=== PATIENT | female | born 1940 | race African-American/Black ===

== ENCOUNTER → 2018-01-01 | Outpatient (CLI) | payer MEDICARE, OTHER ==
[2017-06-19 08:24] VITALS: BMI 26.6
[~2018-01-01] MED LIST: ACET-1966 PO; ACET-2031 PO; ACET500T68 PO; ADV250/50 INH; ALB18R INH; ALB6.7R INH; ALBU8.5H IH; ALBU8.5H12 IH; ALE70 PO; ALEN70TA43 PO; AMLO-99 PO; AMOX-559 PO; ASPI-1471 PO; ASPI-715 PO; ASPI81TA15 PO; ATOR40TA24 PO; AZIT500T47 PO; BUDE0.5A6 IH; CETI-175 PO; CHOL100052 PO; CLOT15CR62 TP; CODE473S6 FT; DIPH-618 PO; DUL100/5PT INH; DULERAPT INH; FLU IM; FLU180SY9 IM; FLU45SYR17 IM; FLU45SYR25 IM ONLY; FURO-45 PO; FURO-47 PO; HYDR-2966 PO; HYDR-4309 PO; IPR14R INH; IPRA3AMP21 IH; KET10 PO; LEVO-85 PO; LOR5/325 PO; LOVA20TA99 PO; MECL12.5 PO; MECL25TA9 PO; METO100T20 PO; METR-160 PO; METXR500 PO; PNEU0.5D3 IM; POTA-28 PO; RAN150 PO; RANI-318 PO; RANI-366 PO; SCOT TD; TIO18R INH; TIOT4MIS2; TRAM-420 PO; TRI05T TP; UMEC1DIS INH; [UNRECOGNIZED DRUG - CODE] PO
== END ==
LOC: LAB 14:54
PROVIDERS: ATTEND Emergency Medicine
DX: E78.00 Pure hypercholesterolemia, unspecified (principal); R73.03 Prediabetes
CPT/HCPCS: 36415; 82465; 83036; 83718; 84478

== ENCOUNTER → 2018-01-08 | Outpatient (CLI) | payer MEDICARE, OTHER ==
[2017-06-19 08:24] VITALS: BMI 26.6
--- NOTE | 2018-01-09 08:31 | RADIOLOGY IMAGING REPORT ---
FACILITY: [facility] - [place] PATIENT NAME: JASON PALM : [id number] MR: [id number] V: [id number] EXAM DATE: [id number] ORDERING PHYSICIAN: DEVAN LUQUE TECHNOLOGIST: Kalyn Elizabeth PROCEDURE:BILATERAL DIGITAL SCREENING MAMMOGRAM WITH CAD ASSISTED INTERPRETATION & 3D TOMOSYNTHESIS COMPARISON:Prior mammograms 07/04/16, 05/18/15, 06/01/14, 05/26/14, 05/22/13, 05/21/12. INDICATIONS:SCREENING FINDINGS: Moderately heterogeneous fibroglandular tissue is seen throughout the breasts. Most of the parenchymal pattern has remained stable allowing for difference in mammographic technique & patient positioning. There are 2 small focal areas of increased density in the middle 1/3 of the Left breast upper portion of the Left MLO view for which spot compression view is recommended. DIAGNOSTIC CATEGORY 0--INCOMPLETE: NEED ADDITIONAL IMAGING EVALUATION. RECOMMENDATIONS: ADDITIONAL MAMMOGRAPHIC VIEWS REQUIRED: LEFT BREAST. IMPRESSION: BIRADS 0: Incomplete. Additional views of the Left breast recommended as described. Dictated by: Mariana Mcbride M.D. on 01/08/2018 at 15:46 Transcribed by: EFREN on 01/08/2018 at 15:54 Approved by: Mariana Mcbride M.D. on 01/09/2018 at 8:30 [facility]
== END ==
LOC: MAMO 01:30
PROVIDERS: ATTEND Emergency Medicine
DX: Z12.31 Encounter for screening mammogram for malignant neoplasm of breast (principal); R92.8 Other abnormal and inconclusive findings on diagnostic imaging of breast
CPT/HCPCS: 77063; 77067

== ENCOUNTER → 2018-01-22 | Outpatient (CLI) | payer MEDICARE, OTHER ==
[2017-06-19 08:24] VITALS: BMI 26.6
--- NOTE | 2018-01-22 15:04 | RADIOLOGY IMAGING REPORT ---
[place] [facility] [place] NAME: JASON PALM : [id number] MR: [id number] V: [id number] EXAM DATE: [id number] ORDERING PHYSICIAN: DEVNA LUQUE TECHNOLOGIST: Kalyn Elizabeth PROCEDURE:LEFT DIGITAL DIAGNOSTIC MAMMOGRAM WITH 3D TOMOSYNTHESIS COMPARISON:Prior mammograms 01/08/18, 07/04/16, 05/18/15, 06/01/14, 05/26/14, 05/22/13, 05/21/12. INDICATIONS:FURTHER EVAL FINDINGS: The patient returns for Spot compression view in the Left MLO projection with 3D Tomosynthesis. The focal area of increased density in the upper portion Left breast seen on the recent Left MLO view appear compressible and apparently represent a summation shadow. There is no demonstration of malignant appearing mass or calcification in the Left breast. DIAGNOSTIC CATEGORY 2--BENIGN FINDING. RECOMMENDATIONS: ROUTINE MAMMOGRAM AND CLINICAL EVALUATION. IMPRESSION: BIRADS 2: Benign finding. No significant abnormality is seen. Dictated by: Mariana Mcbride M.D. on 01/22/2018 at 9:24 Transcribed by: EFREN on 01/22/2018 at 9:58 Approved by: Mariana Mcbride M.D. on 01/22/2018 at 15:02 [facility]
== END ==
LOC: MAMO 01:50
PROVIDERS: ATTEND Emergency Medicine
DX: R92.8 Other abnormal and inconclusive findings on diagnostic imaging of breast (principal)
CPT/HCPCS: 77061; 77065

== ENCOUNTER → 2018-04-22 | Outpatient (CLI) | payer MEDICARE, OTHER ==
[2017-06-19 08:24] VITALS: BMI 26.6
[~2018-04-22] MED LIST changes: +AMLO-113 PO; -AMLO-99 PO; +FLUC100T39 PO; +IPRA3AMP10 IH; -IPRA3AMP21 IH; +Magic Mouthwash PO
[2018-04-22 14:46] LABS: PLATELET COUNT, AUTOMATED 360 K/uL (150-450)
== END ==
LOC: LAB 14:06
PROVIDERS: ATTEND Emergency Medicine
DX: B37.0 Candidal stomatitis (principal); J02.9 Acute pharyngitis, unspecified
CPT/HCPCS: 36415; 82040; 82247; 82310; 82374; 82435; 82565; 82947; 83036; 84075; 84132; 84155; 84295; 84450; 84460; 84520; 85025; 87070; 87252

== ENCOUNTER 2018-06-29 16:22 | Emergency (ER) | payer MEDICARE, OTHER ==
[2017-06-19 08:24] VITALS: BMI 26.6
[~2018-06-29 16:22] MED LIST changes: +FLU60SYR36 IM; -HYDR-4309 PO; +HYDR-653 PO; -METR-160 PO; +METR500T54 PO
[2018-06-29 16:28] VITALS: BP 156/99
--- NOTE | 2018-06-29 16:37 | ER Report ---
History and Physical Time Seen By MD: 16:37 Hx. of Stated Complaint: patient states that she was walking down he steps when she stepped on her left foot wrong HPI/ROS CHIEF COMPLAINT: Left ankle pain HISTORY OF PRESENT ILLNESS: 78-year-old female patient presents to emergency room with complaint of left ankle pain. Patient states that she had gone to work to check on things. She did check the mail and check the water. States she was going down the stairs when she tripped and fell. She is unsure as to what caused her trip. She states that she has since had pain to the left ankle. She states that number of years ago she had surgery to the left ankle. She denies any numbness tingling to the ankle and foot. She will wiggle her toes. She denies hitting her head, her back. She states the ankle hurts only when she puts weight on it. She has not taken any medication for this. REVIEW OF SYSTEMS: Respiratory: No cough, no dyspnea. Cardiovascular: No chest pain, no palpitations. Gastrointestinal: No vomiting, no abdominal pain. Musculoskeletal: As noted above Allergies: Coded Allergies: lisinopril (Verified Allergy, Severe, angioedema, 06/14/17) latex (Verified Allergy, Intermediate, HIVES, 06/14/17) pulls skin off LIAM Inhibitors (Unverified Allergy, Unknown, 06/14/17) Home Meds Active Scripts Atorvastatin Calcium (LIPITOR) 40 Mg Tablet, 1 TAB PO QDAY, #90 TAB 3 Refills Prov:DEVAN LUQUE MD 06/13/18 Clotrimazole/Betamethasone Dip (LOTRISONE CREAM) 15 Gm Cream..g., 1 MARK ANTHONY TP BID PRN for RASH, #1 TUBE 4 Refills Prov:DEVAN LUQUE MD 11/28/17 Umeclidinium Brm/Vilanterol Tr (Anoro Ellipta 62.5-25 Mcg INH) 1 Each Disk.w.dev, 1 INHALER INH DAILY, #1 BLIST PACK 11 Refills Prov:DEVAN LUQUE MD 07/01/17 Metoprolol Succinate (METOPROLOL SUCCINATE) 100 Mg Tab.er.24h, 0.5 TAB PO HS, #90 TAB 3 Refills Prov:DEVAN LUQUE MD 07/01/17 Albuterol Sulfate 90 Mcg/Act (PROAIR HFA 90 MCG/ACT) 8.5 Gm Hfa.aer.ad, 2 PUFF IH Q4-6H, #3 INHALER 3 Refills Prov:DEVAN LUQUE MD 07/01/17 Alendronate Sodium (FOSAMAX) 70 Mg Tablet, 70 MG PO QWK, #14 TAB 3 Refills Prov:DVEAN LUQUE MD 07/01/17 Cholecalciferol (Vitamin D3) (VITAMIN D3) 3,000 Unit Tablet, 3000 UNIT PO DAILY, #30 TAB Prov:KELLY TOLEDO MD 06/21/16 Reported Medications Acetaminophen (TYLENOL EXTRA STRENGTH) 500 Mg Tablet, 500 MG PO PRN, TAB 07/20/16 Aspirin (ASPIR 81) 81 Mg Tablet.dr, 1 TAB PO EVERY OTHER DAY, TAB 06/15/15 Discontinued Scripts [Magic Mouthwash] LIQ No Conflict Check, 5 ML PO Q4-6H, #120 ML 0 Refills Swish and swallow 5 mL every 4-6 hours as needed for throat pain. Prov:ISIDRO TY DNP, [facility]- 04/22/18 Fluconazole (FLUCONAZOLE) 100 Mg Tablet, 1 TAB PO QDAY for 10 Days, #11 TAB 0 R efills Take 2 tabs on day 1. Then take 1 tab daily thereafter. Prov:ISIDRO TY DNP, [facility]- 04/22/18 Past Medical/Surgical History Patient has a past medical history of hypertension, hyperlipidemia, asthma, COPD, reflux, arthritis, osteoporosis, left ankle fracture, diabetes, hypothyroidism. Patient has surgical history of bladder repair, tubal ligation, hysterectomy, left ankle surgery, tonsillectomy, thyroidectomy. Reviewed Nurses Notes: Yes Hx Smoking: Yes (SMOKED 1/2 PPD X 40 YRS OFF AND ON. QUIT 2000.) Smoking Status: Former Smoker Exposure to Second Hand Smoke?: No Hx Substance Use Disorder: No Hx Alcohol Use: No Constitutional Vital Sign - Last 24 Hours 06/29/18 16:28 Temp 97.7 Pulse 72 Resp 19 B/P (MAP) 156/99 Pulse Ox 92 O2 Delivery Room Air Physical Exam General Appearance: The patient is alert, has no immediate need for airway protection and no current signs of toxicity. Respiratory: Chest is non tender, lungs are clear to auscultation. Cardiac: regular rate and rhythm Gastrointestinal: Abdomen is soft and non tender, no masses, bowel sounds normal. Musculoskeletal: Neck: Neck is supple and non tender. Extremities have full range of motion and are non tender. Patient has swelling to the left ankle, no tenderness to palpation, there is no obvious deformity. Skin: No rashes or lesions. DIFFERENTIAL DIAGNOSIS: After history and physical exam differential diagnosis was considered for ankle sprain, fracture, contusion Medical Decision Making EKG/Imaging Imaging INDICATION: fall with pain. DATE: 06/29/2018 5:08 PM. TECHNIQUE: FOOT 3 VIEW LEFT, ANKLE 3 VIEW MIN LEFT COMPARISON: None FINDINGS: Left foot: No fracture identified. Scattered degenerative findings. Left ankle: A lateral plate and screw construct spans the distal fibular fracture. Alignment is anatomic. There is no evidence of acute fracture or dislocation. Old fracture line remains faintly visible within the distal fibula. IMPRESSION: An acute fracture is not identified. Report Dictated By: Galo Merino MD at 06/29/2018 5:08 PM Report E-Signed By: Galo Merino MD at 06/29/2018 5:21 PM ED Course/Re-evaluation ED Course Patient was admitted to an exam room, history and physical were obtained. Differential diagnoses were considered. On examination lungs are clear, heart is regular, abdomen is soft and nontender. Patient had no obvious tenderness to palpation of the left ankle. An x-ray was ordered of the left ankle as well as left foot. The x-rays were negative. I discussed the findings with the patient. I asked her she felt able to go home. She said that she did but we talked about using crutches and she stated that she was not able to do that. We did get the patient a walker and got her up and walked. She was able to get around without any difficulties. We will go ahead and discharge patient home at this time. She is to use Tylenol or ibuprofen as if pain. She is follow-up with her primary care provider with any concerns. Patient verbalized understanding and agreement with plan. Decision to Disposition Date: Jun 29, 2018 Decision to Disposition Time: 17:34 Depart Departure Latest Vital Signs Vital Signs Date Time Temp Pulse Resp B/P (MAP) Pulse Ox O2 Delivery O2 Flow Rate FiO2 06/29/18 16:28 97.7 72 19 156/99 92 Room Air Impression: Primary Impression: Ankle sprain Condition: Improved Disposition: HOME OR SELF-CARE Referrals: DEVAN LUQUE MD (PCP) Patient Instructions: Ankle Sprain (ED) Additional Instructions: Ice, elevate the ankle. Limit activity by pain. Take Tylenol or Ibuprofen as needed for pain. Follow up with your primary care provider in the next week. Return to the ER if condition worsens. Problem Qualifiers Primary Impression: Ankle sprain Encounter type: initial encounter Involved ligament of ankle: unspecified ligament Laterality: left Qualified Codes: S93.402A - Sprain of unspecified ligament of left ankle, initial encounter TATIANNA KING Jun 29, 2018 16:37
--- NOTE | 2018-06-29 17:26 | RADIOLOGY IMAGING REPORT ---
FACILITY: [facility] - [place] PATIENT NAME: Jose F Roman : 1940 MR: [id number] V: [id number] EXAM DATE: ORDERING PHYSICIAN: TATIANNA KING TECHNOLOGIST: Location: [facility] - [place] Patient: Jose F Roman : 1940 Visit/Account:[id number] Date of Sevice: 06/29/2018 INDICATION: fall with pain. DATE: 06/29/2018 5:08 PM. TECHNIQUE: FOOT 3 VIEW LEFT, ANKLE 3 VIEW MIN LEFT COMPARISON: None FINDINGS: Left foot: No fracture identified. Scattered degenerative findings. Left ankle: A lateral plate and screw construct spans the distal fibular fracture. Alignment is eunice omic. There is no evidence of acute fracture or dislocation. Old fracture line remains faintly visi ble within the distal fibula. IMPRESSION: An acute fracture is not identified. Report Dictated By: Galo Merino MD at 06/29/2018 5:08 PM Report E-Signed By: Galo Merino MD at 06/29/2018 5:21 PM WSN:[email or web address]
--- NOTE | 2018-06-29 17:26 | RADIOLOGY IMAGING REPORT ---
[place] [facility] [place] NAME: Jose F Roman : 1940 MR: [id number] V: [id number] EXAM DATE: ORDERING PHYSICIAN: TATIANNA KING TECHNOLOGIST: Location: [facility] Patient: Jose F Roman : 1940 Visit/Account:[id number] Date of Sevice: 06/29/2018 INDICATION: fall with pain. DATE: 06/29/2018 5:08 PM. TECHNIQUE: FOOT 3 VIEW LEFT, ANKLE 3 VIEW MIN LEFT COMPARISON: None FINDINGS: Left foot: No fracture identified. Scattered degenerative findings. Left ankle: A lateral plate and screw construct spans the distal fibular fracture. Alignment is eunice omic. There is no evidence of acute fracture or dislocation. Old fracture line remains faintly visi ble within the distal fibula. IMPRESSION: An acute fracture is not identified. Report Dictated By: Galo Merino MD at 06/29/2018 5:08 PM Report E-Signed By: Galo Merino MD at 06/29/2018 5:21 PM WSN:[email or web address]
== END 2018-06-29 18:31 | disposition home or self-care (01) ==
LOC: ER 16:52
DX: S93.402A Sprain of unspecified ligament of left ankle, initial encounter (principal); W10.9XXA Fall (on) (from) unspecified stairs and steps, initial encounter
CPT/HCPCS: 99284

== ENCOUNTER → 2018-07-18 | Outpatient (CLI) | payer MEDICARE, OTHER ==
[2017-06-19 08:24] VITALS: BMI 26.6
[~2018-07-18] MED LIST changes: +BUDE0.5A IH; +HYDR-385 PO
[2018-07-18 11:14] LABS: PLATELET COUNT, AUTOMATED 387 K/uL (150-450)
--- NOTE | 2018-07-18 13:16 | RADIOLOGY IMAGING REPORT ---
FACILITY: [facility] [place] PATIENT NAME: Jose F Roman : 1940 MR: [id number] V: [id number] EXAM DATE: ORDERING PHYSICIAN: DEVAN LUQUE TECHNOLOGIST: Location: [facility] - [place] Patient: Jose F Roman : 1940 Visit/Account:[id number] Date of Sevice: 07/18/2018 Exam type: CHEST PA AND LAT History: Dyspnea Comparison: November 14, 2015. Findings: Again noted is hyperinflation of the lung aaron. There is prominence of the hilar shadows likely re lated to pulmonary arterial hypertension. There is mild scarring in the right lung base. Chronic pe ribronchial thickening also noted bilaterally. There is no evidence of acute appearing infiltrates o r pulmonary edema. The cardiac silhouette is normal in size. There are extensive spondylotic change s of the thoracic spine IMPRESSION: 1. Hyperinflation lung aaron and prominence of the central pulmonary arteries likely related to PATHOLOGY TECHNOLOGIST D. Chronic. Bronchial thickening although no evidence of acute pulmonary consolidation Report Dictated By: Mariana Mcbride MD at 07/18/2018 1:07 PM Report E-Signed By: Mariana Mcbride MD at 07/18/2018 1:11 PM WSN:[email or web address]
--- NOTE | 2018-07-21 14:25 | EKG ---
FACILITY: [facility] PATIENT NAME: JASON PALM : [id number] MR: [id number] V: [id number] EXAM DATE: ORDERING PHYSICIAN: DEVAN LUQUE TECHNOLOGIST: JERED Cooley Reason : COPD Blood Pressure : / mmHG Vent. Rate : 059 BPM Atrial Rate : 059 BPM P-R Int : 130 ms QRS Dur : 080 ms QT Int : 442 ms P-R-T Axes : 060 042 041 degrees QTc Int : 437 ms Sinus bradycardia Otherwise normal ECG No previous ECGs available Confirmed by JAZMINE WETZEL ([id number]) on 07/22/2018 6:24:31 AM Referred By: Confirmed By:JAZMINE WETZEL
== END ==
LOC: LAB 10:28
PROVIDERS: ATTEND Emergency Medicine
DX: R00.1 Bradycardia, unspecified (principal); R06.00 Dyspnea, unspecified
CPT/HCPCS: 36415; 71046; 82310; 82374; 82435; 82565; 82947; 83880; 84132; 84295; 84520; 85025; 85379

== ENCOUNTER 2018-09-28 08:22 | Emergency (ER) | payer MEDICARE, OTHER ==
[2017-06-19 08:24] VITALS: Wt 77.1 kg
[~2018-09-28 08:22] MED LIST changes: -AMLO-113 PO; +AMLO-127 PO; +METR500T15 PO; -METR500T54 PO
--- NOTE | 2018-09-28 08:24 | ER Report ---
History and Physical Time Seen By MD: 08:24 HPI/ROS CHIEF COMPLAINT: Cough, shortness of breath in the setting of COPD HISTORY OF PRESENT ILLNESS: Patient is a 78-year-old female here with complaints of cough, shortness of breath, general malaise, fatigue. Patient has a history significant for COPD and reports that her rescue inhalers have not been working for her. She does have several sick contacts in her family. Patient usually titrates her home oxygen up to 2 L as needed. Denies abdominal pain, nausea, vomiting, difficulty urinating, melena or diarrhea. REVIEW OF SYSTEMS: Constitutional: + fever, chills. Eyes: No discharge. ENT: No sore throat. Cardiovascular: No chest pain, no palpitations. Respiratory: + cough, + shortness of breath. Gastrointestinal: No abdominal pain, no vomiting. Genitourinary: No hematuria. Musculoskeletal: No back pain. Skin: No rashes. Neurological: No headache. Allergies: Coded Allergies: lisinopril (Verified Allergy, Severe, angioedema, 06/14/17) latex (Verified Allergy, Intermediate, HIVES, 06/14/17) pulls skin off LIAM Inhibitors (Unverified Allergy, Unknown, 06/14/17) Home Meds Active Scripts Oseltamivir Phosphate (TAMIFLU) 75 Mg Cap, 75 MG PO BID for 5 Days, #10 CAP 0 Refills Prov:ONDINA CARPENTER DO 09/28/18 Prednisone (PREDNISONE) 50 Mg Tablet, 50 MG PO QDAY for 5 Days, #5 TAB Prov:ONDINA CARPENTER DO 09/28/18 Albuterol Sulfate (VENTOLIN HFA) 18 Gm Inh, 2 PUFF INH Q4-6H, #3 INH 3 Refills Prov:DEVAN LUQUE MD 07/23/18 Budesonide (PULMICORT) 0.5 Mg/2 Ml Ampul.neb, 0.5 MG IH BID, #60 ML 11 Refills Prov:DEVAN LUQUE MD 07/18/18 Clotrimazole/Betamethasone Dip (LOTRISONE CREAM) 15 Gm Cream..g., 1 MARK ANTHONY TP BID PRN for RASH, #1 TUBE 4 Refills Prov:DEVAN LUQUE MD 07/18/18 Umeclidinium Brm/Vilanterol Tr (Anoro Ellipta 62.5-25 Mcg INH) 1 Each Disk.w.dev, 1 INHALER INH DAILY, #1 BLIST PACK 11 Refills Prov:DEVAN LUQUE MD 07/18/18 Atorvastatin Calcium (LIPITOR) 40 Mg Tablet, 1 TAB PO QDAY, #90 TAB 3 Refills Prov:DEVAN LUQUE MD 06/13/18 Metoprolol Succinate (METOPROLOL SUCCINATE) 100 Mg Tab.er.24h, 0.5 TAB PO HS, #90 TAB 3 Refills Prov:DEVAN LUQUE MD 07/01/17 Alendronate Sodium (FOSAMAX) 70 Mg Tablet, 70 MG PO QWK, #14 TAB 3 Refills Prov:DEVAN LUQUE MD 07/01/17 Cholecalciferol (Vitamin D3) (VITAMIN D3) 3,000 Unit Tablet, 3000 UNIT PO DAILY, #30 TAB Prov:KELLY TOLEDO MD 06/21/16 Reported Medications Acetaminophen (TYLENOL EXTRA STRENGTH) 500 Mg Tablet, 500 MG PO PRN, TAB 07/20/16 Aspirin (ASPIR 81) 81 Mg Tablet.dr, 1 TAB PO EVERY OTHER DAY, TAB 06/15/15 Discontinued Scripts Hydrocodone Bit/Acetaminophen (HYDROCODON-ACETAMINOPHEN 5-325) 1 Each Tablet, 1 EACH PO Q6H for PAIN, #28 TAB Prov:DEVAN LUQUE MD 07/04/18 Hx Smoking: Yes (SMOKED 1/2 PPD X 40 YRS OFF AND ON. QUIT 2000.) Smoking Status: Former Smoker Exposure to Second Hand Smoke?: No Hx Substance Use Disorder: No Hx Alcohol Use: No Constitutional Vital Sign - Last 24 Hours 09/28/18 09/28/18 09/28/18 09/28/18 08:22 08:28 08:30 08:34 Temp 97.9 Pulse 68 Resp 18 B/P (MAP) 157/100 (119) 168/131 (143) 168/131 Pulse Ox 88 90 O2 Delivery Room Air Room Air 09/28/18 09/28/18 09/28/18 09/28/18 08:35 08:50 08:50 08:52 Pulse 88 62 Resp 16 48 B/P (MAP) 155/97 (116) Pulse Ox 91 92 O2 Delivery Room Air Room Air 09/28/18 09/28/18 09/28/18 09/28/18 09:41 09:51 09:52 10:00 Pulse 60 68 Resp 16 20 B/P (MAP) 146/106 (119) 152/104 (120) Pulse Ox 100 O2 Delivery Nasal Cannula O2 Flow Rate 4 09/28/18 09/28/18 09/28/18 09/28/18 10:05 10:11 10:20 10:20 Pulse 63 63 69 Resp 13 16 18 Pulse Ox 100 95 O2 Delivery Nasal Cannula Room Air 09/28/18 09/28/18 09/28/18 09/28/18 10:30 10:35 10:40 10:55 Pulse 72 75 Resp 20 23 18 B/P (MAP) 132/86 (101) 142/81 (101) Pulse Ox 88 84 94 O2 Delivery Room Air Room Air Nasal Cannula O2 Flow Rate 2 Physical Exam General Appearance: The patient is alert, has no immediate need for airway protection and no signs of toxicity. NAD Eyes: Pupils equal and round no pallor or injection. ENT, Mouth: Mucous membranes are moist. Respiratory: + decreased lung sound with scant wheezing b/l Cardiovascular: Regular rate and rhythm. Gastrointestinal: Abdomen is soft and non tender, no masses, bowel sounds normal. Neurological: No focal deficits Skin: Warm and dry, no rashes. Musculoskeletal: Neck is supple non tender. Extremities are nontender, nonswollen and have full range of motion. DIFFERENTIAL DIAGNOSIS: After history and physical exam differential diagnosis was considered for shortness of breath including but not limited to pulmonary infectious process, COPD, asthma, pulmonary embolus and congestive heart failure. Medical Decision Making Data Points Result Diagram: 09/28/1890509/28/1806 Laboratory Hematology Test 09/28/18 09:06 09/28/18 09:32 09/28/18 09:44 Red Blood Count 4.04 M/uL (4.17-5.56) Mean Corpuscular Volume 99.7 fL (80.0-96.0) Mean Corpuscular Hemoglobin 32.8 pg (26.0-33.0) Mean Corpuscular Hemoglobin Concent 32.9 g/dL (32.0-36.0) Red Cell Distribution Width 14.3 % (11.5-14.5) Mean Platelet Volume 6.5 fL (7.2-11.1) Neutrophils (%) (Auto) 48.9 % (39.4-72.5) Lymphocytes (%) (Auto) 32.1 % (17.6-49.6) Monocytes (%) (Auto) 16.3 % (4.1-12.4) Eosinophils (%) (Auto) 2.4 % (0.4-6.7) Basophils (%) (Auto) 0.3 % (0.3-1.4) Nucleated RBC Relative Count (auto) 0.0 /100WBC Neutrophils # (Auto) 1.6 K/uL (2.0-7.4) Lymphocytes # (Auto) 1.1 K/uL (1.3-3.6) Monocytes # (Auto) 0.5 K/uL (0.3-1.0) Eosinophils # (Auto) 0.1 K/uL (0.0-0.5) Basophils # (Auto) 0.0 K/uL (0.0-0.1) Nucleated RBC Absolute Count (auto) 0.00 K/uL Sodium Level 138 mmol/L (137-145) Potassium Level 4.2 mmol/L (3.5-5.0) Chloride Level 101 mmol/L (98-107) Carbon Dioxide Level 32 mmol/L (22-31) Blood Urea Nitrogen 12 mg/dl (7-18) Creatinine 0.80 mg/dl (0.52-1.04) Glomerular Filtration Rate Calc > 60.0 Random Glucose 96 mg/dl (75-110) Calcium Level 8.9 mg/dl (8.4-10.2) Total Bilirubin 0.5 mg/dl (0.2-1.3) Aspartate Amino Transf (AST/SGOT) 36 U/L (0-35) Alanine Aminotransferase (ALT/SGPT) 29 U/L (0-56) Alkaline Phosphatase 79 U/L (0-126) Troponin I < 0.012 ng/ml B-Type Natriuretic Peptide 105 pg/ml (0-100) Total Protein 7.3 g/dl (6.3-8.2) Albumin 3.7 g/dl (3.5-5.0) Lipase 92 U/L (23-300) Influenza Virus Type A (PCR) Positive (NEGATIVE) Influenza Virus Type B (PCR) Negative (NEGATIVE) Urine Color Yellow Urine Clarity Clear Urine pH 7.0 pH (4.8-9.5) Urine Specific [place] 1.012 Urine Protein Negative mg/dL (NEGATIVE) Urine Glucose (UA) Negative mg/dL (NEGATIVE) Urine Ketones Negative mg/dL (NEGATIVE) Urine Blood Negative (NEGATIVE) Urine Nitrite Negative (NEGATIVE) Urine Bilirubin Negative (NEGATIVE) Urine Urobilinogen Negative mg/dL (0.2-1.9) Urine Leukocyte Esterase Negative (NEGATIVE) Urine RBC <1 /HPF (0-2/HPF) Urine WBC <1 /HPF (0-5/HPF) Urine Squamous Epithelial Cells Many /LPF (</=FEW) Urine Bacteria Negative /HPF (NONE-FEW) Urine Mucus Few /HPF (NONE-FEW) Chemistry Test 09/28/18 09:06 09/28/18 09:32 09/28/18 09:44 White Blood Count 3.3 k/uL (4.5-11.0) Red Blood Count 4.04 M/uL (4.17-5.56) Hemoglobin 13.3 g/dL (12.0-16.0) Hematocrit 40.3 % (34.0-47.0) Mean Corpuscular Volume 99.7 fL (80.0-96.0) Mean Corpuscular Hemoglobin 32.8 pg (26.0-33.0) Mean Corpuscular Hemoglobin Concent 32.9 g/dL (32.0-36.0) Red Cell Distribution Width 14.3 % (11.5-14.5) Platelet Count 324 K/uL (150-450) Mean Platelet Volume 6.5 fL (7.2-11.1) Neutrophils (%) (Auto) 48.9 % (39.4-72.5) Lymphocytes (%) (Auto) 32.1 % (17.6-49.6) Monocytes (%) (Auto) 16.3 % (4.1-12.4) Eosinophils (%) (Auto) 2.4 % (0.4-6.7) Basophils (%) (Auto) 0.3 % (0.3-1.4) Nucleated RBC Relative Count (auto) 0.0 /100WBC Neutrophils # (Auto) 1.6 K/uL (2.0-7.4) Lymphocytes # (Auto) 1.1 K/uL (1.3-3.6) Monocytes # (Auto) 0.5 K/uL (0.3-1.0) Eosinophils # (Auto) 0.1 K/uL (0.0-0.5) Basophils # (Auto) 0.0 K/uL (0.0-0.1) Nucleated RBC Absolute Count (auto) 0.00 K/uL Glomerular Filtration Rate Calc > 60.0 Calcium Level 8.9 mg/dl (8.4-10.2) Total Bilirubin 0.5 mg/dl (0.2-1.3) Aspartate Amino Transf (AST/SGOT) 36 U/L (0-35) Alanine Aminotransferase (ALT/SGPT) 29 U/L (0-56) Alkaline Phosphatase 79 U/L (0-126) Troponin I < 0.012 ng/ml B-Type Natriuretic Peptide 105 pg/ml (0-100) Total Protein 7.3 g/dl (6.3-8.2) Albumin 3.7 g/dl (3.5-5.0) Lipase 92 U/L (23-300) Influenza Virus Type A (PCR) Positive (NEGATIVE) Influenza Virus Type B (PCR) Negative (NEGATIVE) Urine Color Yellow Urine Clarity Clear Urine pH 7.0 pH (4.8-9.5) Urine Specific [place] 1.012 Urine Protein Negative mg/dL (NEGATIVE) Urine Glucose (UA) Negative mg/dL (NEGATIVE) Urine Ketones Negative mg/dL (NEGATIVE) Urine Blood Negative (NEGATIVE) Urine Nitrite Negative (NEGATIVE) Urine Bilirubin Negative (NEGATIVE) Urine Urobilinogen Negative mg/dL (0.2-1.9) Urine Leukocyte Esterase Negative (NEGATIVE) Urine RBC <1 /HPF (0-2/HPF) Urine WBC <1 /HPF (0-5/HPF) Urine Squamous Epithelial Cells Many /LPF (</=FEW) Urine Bacteria Negative /HPF (NONE-FEW) Urine Mucus Few /HPF (NONE-FEW) Urinalysis Test 09/28/18 09:44 Urine Color Yellow Urine Clarity Clear Urine pH 7.0 pH (4.8-9.5) Urine Specific [place] 1.012 Urine Protein Negative mg/dL (NEGATIVE) Urine Glucose (UA) Negative mg/dL (NEGATIVE) Urine Ketones Negative mg/dL (NEGATIVE) Urine Blood Negative (NEGATIVE) Urine Nitrite Negative (NEGATIVE) Urine Bilirubin Negative (NEGATIVE) Urine Urobilinogen Negative mg/dL (0.2-1.9) Urine Leukocyte Esterase Negative (NEGATIVE) Urine RBC <1 /HPF (0-2/HPF) Urine WBC <1 /HPF (0-5/HPF) Urine Squamous Epithelial Cells Many /LPF (</=FEW) Urine Bacteria Negative /HPF (NONE-FEW) Urine Mucus Few /HPF (NONE-FEW) EKG/Imaging Imaging Location: [facility] - [place] Patient: Jose F Roman DOB: 1940 Visit/Account:[id number] Date of Sevice: 09/28/[address] scan without contrast. HISTORY: Right neck swelling. COMPARISON: None. [address] images were obtained from the skull base to the upper chest. No intravenous contrast. One of the following dose optimization techniques was utilized in the performance of this exam: Automated exposure control; adjustment of the mA and/or kV according to the patient's size; or use of an iterative reconstruction technique. Specific details can be referenced in the facility's radiology CT exam operational policy. FINDINGS: The right thyroid lobe is enlarged measuring 5.8 cm in length. The right thyroid lobe is heterogeneous and partially calcified. The inferior pole of the right thyroid lobe extends into the right upper mediastinum causing slight leftward deviation of the trachea. The thyroid isthmus is thickened and heterogeneous. The left thyroid lobe is normal in size. The aortic arch is calcified and mildly ectatic. The great vessels are mildly ectatic and tortuous. Tortuous great vessels protrude into the right upper mediastinum. Great vessel detail is limited without intravenous contrast. The coronary arteries are calcified. Multiple small lymph nodes measuring less than 1.5 cm in diameter are scattered in the deep and superficial cervical chains bilaterally. The epiglottis is normal in size. The larynx and hypopharynx are otherwise unremarkable. The base of the tongue is unremarkable. Degenerative changes are present in the spine. The cheeks are distended with air. A small amount of thick fluid is present in the right sphenoid sinus. The mastoids and middle ears are aerated bilaterally. The parotid and submandibular glands are normal in size. IMPRESSION: Right substernal goiter. Borderline bilateral cervical adenopathy, probably reactive. Mild sphenoid sinusitis. Atherosclerosis. Location: [facility] - [place] Patient: Jose F Roman DOB: 1940 Visit/Account:[id number] Date of Sevice: 09/28/2018 Chest with lateral, 2 views. HISTORY: Respiratory distress. COMPARISON: Chest radiographs 07/18/2018 and 06/09/2015, chest CT scan 06/16/2015 (report only). The patient is slightly rotated to the right on the frontal view. The heart size is upper limits of normal. Central pulmonary arteries are enlarged, unchanged. The aortic knob is calcified. The lungs are voluminous. Interstitial markings are thickened bilaterally, unchanged. No pleural fluid. A vague density is present in the medial aspect of the right upper chest consistent with the known substernal goiter, unchanged compared to 06/09/2015. The abdominal aorta is calcified. No acute bony abnormalities. IMPRESSION: COPD. Enlarged pulmonary arteries suggesting cor pulmonale. Atherosclerosis. Right upper chest opacity consistent with the known substernal goiter. ED Course/Re-evaluation ED Course Patient is a 78-year-old female here with complaints of cough, shortness breath, neck swelling. Neck CT was consistent with cervical adenopathy likely reactive in nature. Chest x-ray showed no acute consolidations. Labs were remarkable for influenza A. Patient was started on Tamiflu, given prednisone for likely COPD exacerbation. She did receive Decadron during the ED course. Patient was discharged in stable condition, close PCP follow-up recommended. Return precautions are provided. Decision to Disposition Date: Sep 28, 2018 Decision to Disposition Time: 10:52 Depart Departure Latest Vital Signs Vital Signs Date Time Temp Pulse Resp B/P (MAP) Pulse Ox O2 Delivery O2 Flow Rate FiO2 09/28/18 10:55 18 142/81 (101) 94 Nasal Cannula 2 09/28/18 10:40 75 09/28/18 08:34 97.9 Impression: Primary Impression: Influenza A Additional Impression: COPD exacerbation Condition: Improved Disposition: HOME OR SELF-CARE Referrals: DEVAN LUQUE MD (PCP) New Scripts Oseltamivir Phosphate (TAMIFLU) 75 Mg Cap 75 MG PO BID for 5 Days, #10 CAP 0 Refills Prov: ONDINA CARPENTER DO 09/28/18 Prednisone (PREDNISONE) 50 Mg Tablet 50 MG PO QDAY for 5 Days, #5 TAB Prov: ONDINA CARPENTER DO 09/28/18 Departure Forms: ER Transition Record, Home Oxygen, Nebulizer RX, Home Oxygen Company Chosen by Patient: [employer] Durable Medical Equipment-Oxygen: Portable Oxygen Gas Reason for Use/Diagnosis: 2 lpm 25/02 due to influenza COPD exacerbation O2 Sats < 86% on RA Medications Reconciliation, Patient Portal Information Patient Instructions: COPD (Chronic Obstructive Pulmonary Disease) (ED), Influenza (DC) Additional Instructions: Please take Tamiflu 75 mg twice daily for 5 days. Please take prednisone 50 mg daily for 5 days. Please use your nebulizer treatments every 4 hours as needed for wheezing and shortness of breath. Please return immediately if she develop worsening shortness breath, fevers, nausea, vomiting, chest pain. Please follow- up with your family doctor in the next 48 hours. Please continue to use your supplemental oxygen as your oxygen levels are low without supplementation. Problem Qualifiers ONDINA CARPENTER DO Sep 28, 2018 08:24
[2018-09-28] MEDS ORDERED: DEXAMETHASONE SOD PHOS 10MG/ML IVP ONE (08:40)
[2018-09-28] MEDS: ALBUTEROL/IPRATROPIUM 3 ML NEB NEB SCH ×3 (08:58→09:24)
[2018-09-28 09:14] LABS: PLATELET COUNT, AUTOMATED 324 K/uL (150-450)
--- NOTE | 2018-09-28 09:46 | RADIOLOGY IMAGING REPORT ---
FACILITY: [facility] - [place], [place] PATIENT NAME: Jose F Roman : 1940 MR: [id number] V: [id number] EXAM DATE: ORDERING PHYSICIAN: ONDINA CARPENTER TECHNOLOGIST: Location: [facility] [place] Patient: Jose F Roman : 1940 Visit/Account:[id number] Date of Sevice: 09/28/2018 Chest with lateral, 2 views. HISTORY: Respiratory distress. COMPARISON: Chest radiographs 07/18/2018 and 06/09/2015, chest CT scan 06/16/2015 (report only). The patient is slightly rotated to the right on the frontal view. The heart size is upper limits of n ormal. Central pulmonary arteries are enlarged, unchanged. The aortic knob is calcified. The lungs ar e voluminous. Interstitial markings are thickened bilaterally, unchanged. No pleural fluid. A vague d ensity is present in the medial aspect of the right upper chest consistent with the known substernal goiter, unchanged compared to 06/09/2015. The abdominal aorta is calcified. No acute bony abnormalitie s. IMPRESSION: COPD. Enlarged pulmonary arteries suggesting cor pulmonale. Atherosclerosis. Right upper chest opacity consistent with the known substernal goiter. Report Dictated By: Abel Moreau MD at 09/28/2018 9:35 AM Report E-Signed By: Abel Moreau MD at 09/28/2018 9:42 AM WSN:[id number]
--- NOTE | 2018-09-28 09:58 | RADIOLOGY IMAGING REPORT ---
FACILITY: [facility] - [place] PATIENT NAME: Jose F Roman : 1940 MR: [id number] V: [id number] EXAM DATE: ORDERING PHYSICIAN: ONDINA CARPENTER TECHNOLOGIST: Location: [facility] - [place], [place] Patient: Jose F Roman : 1940 Visit/Account:[id number] Date of Sevice: 09/28/[address] scan without contrast. HISTORY: Right neck swelling. COMPARISON: None. [address] images were obtained from the skull base to the upper chest. No intravenous contr ast. One of the following dose optimization techniques was utilized in the performance of this exam: Automated exposure control; adjustment of the mA and/or kV according to the patient's size; or use of an iterative reconstruction technique. Specific details can be referenced in the facility's radiol ogy CT exam operational policy. FINDINGS: The right thyroid lobe is enlarged measuring 5.8 cm in length. The right thyroid lobe is heterogeneou s and partially calcified. The inferior pole of the right thyroid lobe extends into the right upper m ediastinum causing slight leftward deviation of the trachea. The thyroid isthmus is thickened and het erogeneous. The left thyroid lobe is normal in size. The aortic arch is calcified and mildly ectatic. The great vessels are mildly ectatic and tortuous. Tortuous great vessels protrude into the right up per mediastinum. Great vessel detail is limited without intravenous contrast. The coronary arteries a re calcified. Multiple small lymph nodes measuring less than 1.5 cm in diameter are scattered in the deep and superficial cervical chains bilaterally. The epiglottis is normal in size. The larynx and hy popharynx are otherwise unremarkable. The base of the tongue is unremarkable. Degenerative changes ar e present in the spine. The cheeks are distended with air. A small amount of thick fluid is present i n the right sphenoid sinus. The mastoids and middle ears are aerated bilaterally. The parotid and sub mandibular glands are normal in size. IMPRESSION: Right substernal goiter. Borderline bilateral cervical adenopathy, probably reactive. Mild sphenoid sinusitis. Atherosclerosis. Report Dictated By: Abel Moreau MD at 09/28/2018 9:42 AM Report E-Signed By: Abel Moreau MD at 09/28/2018 9:53 AM WSN:[id number]
[2018-09-28 10:55] VITALS: BP 142/81
[2018-09-28] MEDS ORDERED: OSE75 PO (11:43)
[2018-09-28] MEDS ORDERED: PRED50TA22 PO (11:43)
[2018-10-02] MEDS ORDERED: AMOX-559 PO (10:32)
== END 2018-09-28 11:50 | disposition home or self-care (01) ==
LOC: ER 08:41
DX: Z87.891 Personal history of nicotine dependence (principal); J11.1 Influenza due to unidentified influenza virus with other respiratory manifestations; J44.1 Chronic obstructive pulmonary disease with (acute) exacerbation; E04.8 Other specified nontoxic goiter
CPT/HCPCS: 36415; 70490; 71046; 81001; 83690; 83880; 84484; 85025; 87502; 94644; 96374; 99284; J1100; J7620; 82040; 82247; 82310; 82374; 82435; 82565; 82947; 84075; 84132; 84155; 84295; 84450; 84460; 84520

== ENCOUNTER → 2018-10-23 | Outpatient (CLI) | payer MEDICARE, OTHER ==
[2017-06-19 08:24] VITALS: BMI 26.6
[~2018-10-23] MED LIST changes: +OMEP40CA48 PO; +OSE75 PO; +PRED50TA22 PO
== END ==
LOC: LAB 13:56
PROVIDERS: ATTEND Emergency Medicine
DX: E11.9 Type 2 diabetes mellitus without complications (principal); R06.00 Dyspnea, unspecified
CPT/HCPCS: 36415; 82310; 82374; 82435; 82565; 82607; 82947; 83036; 83880; 84132; 84295; 84520

== ENCOUNTER → 2018-10-31 | Outpatient (CLI) | payer MEDICARE, OTHER ==
[2017-06-19 08:24] VITALS: BMI 26.6
[~2018-10-31] MED LIST changes: +CYAN20003 PO
--- NOTE | 2018-10-31 12:11 | RADIOLOGY IMAGING REPORT ---
FACILITY: [facility] - [place] PATIENT NAME: Jose F Roman : 1940 MR: [id number] V: [id number] EXAM DATE: [id number] ORDERING PHYSICIAN: DEVAN LUQUE TECHNOLOGIST: Location: [facility] Patient: Jose F Roman : 1940 Visit/Account:[id number] Date of Sevice: 10/31/2018 DEXA Scan 10/31/2018 9:08 AM HISTORY: Osteoporosis Comparison: DEXA scan from 07/04/2016. LUMBAR SPINE: The bone mineral density (BMD) measured from L1-L4 correlates with a Z-score of -2.2 and a T-score of -2.8 which is osteoporotic as defined by the World Health Organization. The corresponding risk of f racture in the lumbar spine is increased 6-8 times compared with a young adult reference population. This value has increased by 1.6 % since the prior study. More than 5% change is considered signific ant. HIP: Bone mineral density (BMD) measured in the Left total hip region correlates with a Z-score 0.4 and a T-score of -0.3 which is Normal as defined by the World Health Organization. The corresponding risk of fracture in the hip is Not increased compared with a young adult reference population. This value has increased by 6.7 % since the prior study. More than 5% change is considered significant. Bone mineral density (BMD) measured in the Femoral Neck region measures 0.924 g/cm2. T-score is -0. 8. IMPRESSION: 1. Lumbar spine: Osteoporotic. There has been No significant change in the bone mineral density sin ce the previous exam. 2. Left Total Hip: Normal. There has been a significant interval increase in the bone mineral densi ty since the previous exam. 3. Femoral Neck: Bone Mineral Density is 0.924 g/cm2. Within lower normal range. The next DEXA scan of this patient should include the following sites: L1-L4 and the left hip. FRAX? WHO Fracture Risk Assessment Tool link: <http://www.shef.ac.uk/FRAX/tool.jsp?locationValue=9> PLEASE NOTE: 1) The World Health Organization defines low BMD as follows: T-score Normal > -1 Osteopenia < -1 and > -2.5 Osteoporosis < -2.5 without fractures Established osteoporosis < -2.5 with fractures 2) In general, you may wish to consider: Diagnosis Treatment Follow-up DEXA Normal BMD Prevention 2-3 years Osteopenia Prevention/therapy 1-2 years Osteoporosis Therapy Yearly 3) Fracture risk estimated from the T-score is more accurate for vertebral fractures (often spontane ous) than for hip fractures. Report Dictated By: Naresh Locke MD at 10/31/2018 12:05 PM Report E-Signed By: Naresh Locke MD at 10/31/2018 12:07 PM WSN:[email or web address]
== END ==
LOC: RAD 02:01
PROVIDERS: ATTEND Emergency Medicine
DX: M81.0 Age-related osteoporosis without current pathological fracture (principal)
CPT/HCPCS: 77080

== ENCOUNTER → 2019-02-11 | Outpatient (CLI) | payer MEDICARE, OTHER ==
[2017-06-19 08:24] VITALS: BMI 26.6
[~2019-02-11] MED LIST changes: -RANI-366 PO; +RANI-54 PO
[2019-02-11 14:11] LABS: PLATELET COUNT, AUTOMATED 392 K/uL (150-450)
== END ==
LOC: LAB 13:19
PROVIDERS: ATTEND Emergency Medicine
DX: M81.0 Age-related osteoporosis without current pathological fracture (principal); R07.9 Chest pain, unspecified; E53.8 Deficiency of other specified B group vitamins
CPT/HCPCS: 36415; 82040; 82247; 82306; 82310; 82374; 82435; 82565; 82607; 82947; 84075; 84132; 84155; 84295; 84450; 84460; 84484; 84520; 85025

== ENCOUNTER → 2019-02-20 | Outpatient (CLI) | payer MEDICARE, OTHER ==
[2017-06-19 08:24] VITALS: BMI 26.6
[~2019-02-20] MED LIST changes: +CYA1000 PO
--- NOTE | 2019-02-25 13:50 | RADIOLOGY IMAGING REPORT ---
FACILITY: [facility] [place] PATIENT NAME: JASON PALM : [id number] MR: [id number] V: [id number] EXAM DATE: [id number] ORDERING PHYSICIAN: DEVAN LUQUE TECHNOLOGIST: Kalyn Elizabeth PROCEDURE: BILATERAL DIGITAL SCREENING MAMMOGRAM WITH CAD ASSISTED INTERPRETATION & 3D TOMOSYNTHESIS REASON FOR STUDY: Screening. FAMILY HISTORY OF BREAST CANCER: BREAST PROCEDURES/TREATMENTS: COMPARISON: 01/08/2018 & 07/04/2016. VIEWS OBTAINED: 2D & 3D full field CC & MLO projections. BREAST DENSITY: Demonstrates scattered fibroglandular tissue elements. MAMMOGRAM FINDINGS: Vascular calcifications are seen in both breasts, stable. Course calcifications in the Left breast are unchanged, consistent with a fibroadenoma. There is no suspicious mass, calcification, or architectural distortion. IMPRESSION: BIRADS 2: Benign finding. DIAGNOSTIC CATEGORY 2--BENIGN FINDING. RECOMMENDATIONS: ROUTINE MAMMOGRAM AND CLINICAL EVALUATION IN 1YR. Dictated by: Naresh Garrison M.D. on 02/25/2019 at 8:40 Transcribed by: EFREN on 02/25/2019 at 9:00 Approved by: Naresh Garrison M.D. on 02/25/2019 at 13:46 [facility]
== END ==
LOC: MAMO 03:54
PROVIDERS: ATTEND Emergency Medicine
DX: Z12.31 Encounter for screening mammogram for malignant neoplasm of breast (principal); N60.22 Fibroadenosis of left breast
CPT/HCPCS: 77063; 77067